=== PATIENT | female | born 1980 | race Caucasian/White ===

== ENCOUNTER 2023-02-06 17:05 | Emergency (ER) | payer SELFPAY ==
[~2023-02-06] VITALS: Ht 162.6 cm; Wt 72.7 kg
[2023-02-06 17:13] VITALS: TEMP 97.8
[2023-02-06 17:33] LABS: BASO % 0.6 % (0.0-2.0); EOS # 0.3 K/mm3 (0.0-0.7); EOS % 4.4 % (0.0-4.0); GRAN % 63.1 % (42.2-75.2); HEMATOCRIT 43.2 % (37.0-47.0); HEMOGLOBIN 14.7 g/dl (12.5-16.0); LYMPH # 1.5 K/mm3 (1.2-3.4); LYMPH % 22.9 % (20.0-51.0); MEAN CELL VOLUME 91 fl (80.0-100.0); MEAN CORPUSCULAR HEMOGLOBIN 31 pg (27-31); MEAN CORPUSCULAR HGB CONC 34 g/dl (33.0-37.0); MEAN PLATELET VOLUME 10.7 fl (7.4-10.4); MONO # 0.6 K/mm3 (0.1-0.6); MONO % 8.7 % (1.7-9.3); PLATELET COUNT 229 K/mm3 (130-400); RED BLOOD COUNT 4.77 M/mm3 (4.10-5.30); REDCELL DISTRIBUTION WIDTH-CV 12.6 % (11.5-14.5)
[2023-02-06] MEDS ORDERED: COREG 25MG25 MG/TAB PO (17:47)
[2023-02-06] MEDS ORDERED: AMITRIPTYLINE H25 M1 PO (17:47)
[2023-02-06] MEDS ORDERED: NORVASC 10MG10 MG PO (17:47)
[2023-02-06] MEDS ORDERED: LIPITOR 40MG TA40 MG PO (17:47)
[2023-02-06] MEDS ORDERED: MEDROL 4MG DOSPA4 MG PO (17:48)
[2023-02-06] MEDS ORDERED: PRINIVIL20 MG PO (17:48)
[2023-02-06] MEDS ORDERED: ALDACTONE 100M100 MG PO (17:48)
[2023-02-06] MEDS ORDERED: CARDURA 8MG TAB8 MG PO (17:48)
[2023-02-06 17:52] LABS: ALANINE AMINOTRANSFERASE 24 U/L (0-55); ALKALINE PHOSPHATASE 81 U/L (40-150); ANION GAP 11 mmol/L (7-16); AST,SGOT 19 U/L (5-34); BILIRUBIN,TOTAL 0.5 mg/dL (0.2-1.2); BLOOD UREA NITROGEN 24 mg/dL (7-19); C-REACTIVE PROTEIN 0.18 mg/dL (0.00-0.50); CALCIUM 9.2 mg/dL (8.4-10.2); CARBON DIOXIDE 20 mmol/L (22-29); CHLORIDE 107 mmol/L (98-107); CREATININE, serum 0.93 mg/dL (0.57-1.11); GLUCOSE 100 mg/dL (70-99); POTASSIUM 4.5 mmol/L (3.5-4.5); SODIUM 138 mmol/L (136-145); TOTAL PROTEIN 7.5 gm/dL (6.2-8.1)
[2023-02-06] MEDS ORDERED: MAGNESIUM200 MG PO (17:58)
[2023-02-06 18:02] LABS: TROPONIN-I < 0.010 ng/mL (0.00-0.033)
[2023-02-06 19:37] VITALS: BP 117/80; PULSE 90
== END 2023-02-06 19:56 | disposition home or self-care (01) ==
LOC: COL.ER 17:05
PROVIDERS: Nurse Practitioner Primary Care
DX: R42 Dizziness and giddiness (principal); I10 Essential (primary) hypertension; F17.290 Nicotine dependence, other tobacco product, uncomplicated; Z79.899 Other long term (current) drug therapy